=== PATIENT | female | born 1965 | race Caucasian/White ===

== ENCOUNTER 2022-02-06 11:33 | Outpatient (RCR) | payer BC, MEDICARE ==
[~2022-02-06] VITALS: Ht 172.7 cm; Wt 123.6 kg
[2022-02-06 11:55] VITALS: BP 133/85
[2022-02-06] MEDS ORDERED: BENRALIZUMAB 30 MG/ML (FASENRA) SYRINGE SQ ONE ×2 (12:30→12:45)
== END 2022-03-04 | disposition home or self-care (01) ==
LOC: SDC 11:33
PROVIDERS: ATTEND Internal Medicine Critical Care Medicine
DX: J45.50 Severe persistent asthma, uncomplicated (principal)
CPT/HCPCS: 96372